=== PATIENT | female | born 1955 | race Caucasian/White ===

== ENCOUNTER → 2016-10-05 | Emergency (ER) | payer OTHER | END | disposition disaster alternative care site (69) | LOC: GAMB 09:07 | DX: J44.1 Chronic obstructive pulmonary disease with (acute) exacerbation (principal); R06.02 Shortness of breath; Z79.52 Long term (current) use of systemic steroids; Z79.899 Other long term (current) drug therapy; Z88.0 Allergy status to penicillin ==

== ENCOUNTER → 2016-10-30 | Outpatient (CLI) | payer OTHER ==
--- NOTE | ~2016-10-30 | PUL ---
PATIENT'S NAME: ALEXANDRA CLINE [facility] AGE: 61 Y [address] ROOM: [place] [address] LOCATION: TH ADMIT DATE: 10/30/2016 Pulmonary DISCHARGE DATE: 10/30/2016 FAMILY PHYSICIAN: Luther Sands MD ATTENDING PHYSICIAN: Bianca Tse NAME OF PROCEDURE: Pulmonary Function Test DATE OF PROCEDURE: October 30, 2016 TECH: RAJI Lenz REASON FOR EXAM: COPD RESULTS: 1. FVC was 1.56 liters which is 53% of predicted and low, FEV1 was 0.6 liters which is 26% of predicted and low, and FEV1/FVC was 38% and low. The flow volume curve revealed significant airflow limitation. After bronchodilator administration FVC increased to 1.61 liters which is a 3% increase and FEV1 increased to 0.67 liters which is a 13% increase. FEV1/FVC was 42%. 2. DLCO was 6.5 with an adjusted DLCO of 6.8 which is 42% of predicted and low. 3. Total lung capacity was 6.23 liters which is 139% of predicted and high, and residual volume was 4.35 liters which is 255% of predicted and high. PHYSICIAN INTERPRETATION: The patient has very severe airflow limitation without a significant bronchodilator response. Her diffusion capacity is moderately low. There is evidence of hyperinflation and severe air trapping on lung volumes. MD KEV GOMES/elana /[id number] dtt: 11/04/16 1542 , BIANCA TSE dtd: 11/04/16 1148
== END | disposition disaster alternative care site (69) ==
LOC: GRTH 10-22 09:00
DX: J44.9 Chronic obstructive pulmonary disease, unspecified (principal); R06.9 Unspecified abnormalities of breathing

== ENCOUNTER → 2016-12-02 | Outpatient (CLI) | payer OTHER | END | disposition disaster alternative care site (69) | LOC: GRAD 10:41 | DX: J44.9 Chronic obstructive pulmonary disease, unspecified (principal); F17.210 Nicotine dependence, cigarettes, uncomplicated; R91.8 Other nonspecific abnormal finding of lung field | CPT/HCPCS: G0297 ==

== ENCOUNTER → 2016-12-22 | Outpatient (CLI) | payer OTHER | END | disposition disaster alternative care site (69) | LOC: GKIC 11:44 | DX: R91.8 Other nonspecific abnormal finding of lung field (principal) | CPT/HCPCS: A9552 ==